=== PATIENT | male | born 1985 | race Caucasian/White ===

== ENCOUNTER 2019-11-23 09:05 | Outpatient (CLI) | payer BC ==
--- NOTE | 2019-11-23 10:21 | MRI ---
LUMBAR SPINE MRI WITHOUT IV CONTRAST: HISTORY: Low back pain with radiculopathy. Left lower extremity pain. FINDINGS: Multiplanar, multisequence MRI examination of the lumbar spine was performed. Conus medullaris regio n is unremarkable. No evidence for acute abnormal marrow edema. There are some generalized disk dilip iccation changes and ligament and facet hypertrophic changes. T12-L1 disk: Unremarkable. L1-L2 disk: Right central protrusion with an anterior Schmorl's node involving the superior aspect o f L2 with mild central canal and right lateral recess narrowing without foraminal stenosis. L2-L3 disk: No significant stenosis. L3-L4 disk: No significant stenosis. L4-L5 disk: Large left central and paracentral extruded disk herniation with marked ventral thecal s ac compression and left lateral recess stenosis and left L5 nerve root compression with minimal left foraminal stenosis. L5-S1 disk: Minimal central protrusion with right central annular fissure without significant thecal sac or nerve root compression or foraminal stenosis. 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 Right central annular fissure at L5-S1 with focal protrusion. Right central disk protrusion at L1-L2 with some thecal sac compression and associated Schmorl's node as above. POS: RRE
== END 2019-11-23 09:06 | disposition home or self-care (01) ==
LOC: SCSMRI 09:05
PROVIDERS: ATTEND Family Medicine
DX: M51.16 Intervertebral disc disorders with radiculopathy, lumbar region (principal); Q05.7 Lumbar spina bifida without hydrocephalus
CPT/HCPCS: 72148